=== PATIENT | male | born 1980 | race Two or more races ===

== ENCOUNTER 2020-09-07 09:52 | Outpatient (CLI) | payer OTHER | END 2020-09-07 17:04 | disposition home or self-care (01) | LOC: OFIC 805 09:52 | PROVIDERS: ATTEND Otolaryngology Otology & Neurotology | DX: J34.3 Hypertrophy of nasal turbinates (principal); J34.89 Other specified disorders of nose and nasal sinuses; R09.81 Nasal congestion; J31.0 Chronic rhinitis ==